=== PATIENT | female | born 1990 | race Caucasian/White ===

== ENCOUNTER 2020-04-20 07:32 | Inpatient (IN) | payer OTHER ==
[2020-04-20] VITALS (26 sets, daily range): BP systolic 98–133; BP diastolic 56–85; PULSE 68–117; TEMP 97.6–98.3
[~2020-04-20] VITALS: Ht 165.1 cm; Wt 72.3 kg
--- NOTE | 2020-04-20 07:10 | NUR ---
Patient ambulatory to LR6 with spouse, changed into gown/belly band on, FHR/TOCO monitors placed and explained. Patient denies any regular contractions/leaking of fluid/vaginal bleeding/decreased movement. Plan of care discussed. 0730: IV started in left upper arm, blood obtained and to lab, LR infusing. Pitocin induction discussed and patient verbalizes understanding and agrees. 0735: Pitocin started at 2mU per protocol. 0820: Dr. Negron at bedside and assessing patient and FHR strip. 0822: SVE per physician 3/75/-2 and AROM with clear fluid noted. Plan of care discussed. 0937: Patient requesting epidural and Anel RACK CLEANER notified. 0942: Patient sat up for epidural and Yaz Rubio RACK CLEANER at bedside. Difficulty tracing FHR due to maternal position. 0949: Single shot given and patient tolerates well. 0954: Patient repositioned and safety precautions gone over. 1015: Lopez catheter placed and patient tolerates well. SVE-6/80/-2. Patient right lateral with left leg in stirrup. 1040: Left lateral with right leg resting in stirrup. 1100: Patient states feeling more pressure. SVE-7/90/-1 and in andrew position. 1130: SVE:8-9/90/0 and called and updated. 1140: SVE per Chilo RN-10/100/+2 and patient set up for delivery. 1152: Dr. Negron at bedside and bed taken apart and pericare done. 1153: Patient begins to push with each contractions. 1157: Spontaneous vaginal delivery of viable male- head followed by body. Infant bulb syringed and to patients abdomen. Ricky Golden RN assumes care of . Cord clamped and cut by physician and cord blood obtained. 1201: Spontaneous vaginal delivery of placenta. Pitocin bolus started at 333mU per protocol. Fundal massage done/firm/bleeding WNL. Pericare done and bed back together. Ice pack to perineum. Plan of care discussed.
[~2020-04-20 07:32] MED LIST: PRENATAL TABLET PO
[2020-04-20 07:54] LABS: HEMOGLOBIN 11.7 g/dl (12.5-16.0); MEAN CELL VOLUME 91 fl (80.0-100.0); MEAN CORPUSCULAR HEMOGLOBIN 31 pg (27.0-31.0); MEAN CORPUSCULAR HGB CONC 34 g/dl (33.0-37.0); MEAN PLATELET VOLUME 11.1 fl (7.4-10.4); PLATELET COUNT 198 K/mm3 (130-400); RED BLOOD COUNT 3.83 M/mm3 (4.10-5.30); REDCELL DISTRIBUTION WIDTH-CV 13.2 % (11.5-14.5)
[2020-04-20 08:06] LABS: HEMATOCRIT 34.8 % (37.0-47.0)
[2020-04-20 08:11] LABS: BAND 10 % (0-10); LYMPHOCYTE 24 % (20.0-51.0); METAMYELOCYTE 1 % (0-0); NEUTROPHILS 60 % (42.0-75.2); PLATELET ESTIMATE NORMAL (NORMAL)
--- NOTE | 2020-04-20 15:05 | NUR ---
Patient into wheel chair and assisted onto toilet, unable to void at this time. Pericare done and new gown/underwear/pad on. Patient into wheelchair and to new room. Oriented to and plan of care discussed.
[2020-04-21 01:30] VITALS: BP 105/89; PULSE 76; TEMP 98
[2020-04-21 07:45] VITALS: BP 116/70; PULSE 67; TEMP 98.6
--- NOTE | 2020-04-21 10:33 | NUR ---
Initial visit: Parents thanked Curtain Stretcher Assembler for offering congratulations and God's blessings for the of their son. Curtain Stretcher Assembler thanked family for choosing [facility].
== END 2020-04-21 14:25 | disposition home or self-care (01) | DRG 807 ==
LOC: LDR 07:32 → OB 11:15
PROVIDERS: ADMIT Student in an Organized Health Care Education/Training Program
PROC: 10E0XZZ Delivery of Products of Conception, External Approach (ICD-10-PCS; principal; 2020-04-20)
PROC: 10907ZC Drainage of Amniotic Fluid, Therapeutic from Products of Conception, Via Natural or Artificial Opening (ICD-10-PCS; 2020-04-20)
PROC: 3E033VJ Introduction of Other Hormone into Peripheral Vein, Percutaneous Approach (ICD-10-PCS; 2020-04-20)
DX: O99.344 Other mental disorders complicating childbirth (principal); Z37.0 Single live birth; O99.62 Diseases of the digestive system complicating childbirth; Z3A.39 39 weeks gestation of pregnancy; K90.0 Celiac disease
CPT/HCPCS: J2590; J2795; J7120